=== PATIENT | female | born 1980 | race Caucasian/White ===

== ENCOUNTER → 2017-03-15 | Outpatient (CLI) | payer OTHER ==
[~2017-03-15] MED LIST: ACET325; Z.0.BCPILL
--- NOTE | 2017-03-15 12:52 | RADRPT ---
EXAM DATE/TIME: 03/15/2017 11:09 [place] COMPARISON: No previous studies available for comparison. INDICATIONS : , dating. LAB(S): [id number] MEDICAL HISTORY : . SURGICAL HISTORY : Oral surgery, wisdom teeth. ENCOUNTER: Initial ACUITY: 1 day PAIN SCORE: 0/10 LOCATION: Bilateral pelvis MEASUREMENTS: UTERUS: 9.4 x 5.7 x 5.5 cm ENDOMETRIAL STRIPE: 14 mm RIGHT OVARY: 3.1 x 1.8 x 2.9 cm LEFT OVARY: 4.4 x 1.9 x 3.7 cm FREE FLUID: No CROWN RUMP LENGTH: 0.55 cm = 6 WKS 2 DAYS FHR: 131 BPM FINDINGS: UTERUS: The examination demonstrates a gestational sac within the endometrial cavity. There is a pole e vident with a crown-rump length of 0.55 CM. This corresponds to a gestational age of 6 weeks and 2 da ys. There is a heartbeat present at 130 beats per minute. Imaging through the remainder of the uterus demonstrate 0.8 x 0.7 x 0.8 cm well-circumscribed nodule within the myometrium probably repres enting a small fibroid. RIGHT OVARY: Ovary contains no mass or significant cystic lesion. LEFT OVARY: The examination demonstrates a 1.0 x 0.8 x 0.7 cm anechoic cyst within the left ovary in addition, th ere is a second 2.2 x 1.2 x 2.0 cm well-circumscribed area of increased echogenicity probably represe nting a corpus luteal cyst. MISCELLANEOUS: No free fluid. CONCLUSION: 1. Viable intrauterine estimated age 6 weeks 2 days. Ned Colin MD on March 15, 2017 at 12:48 Board Certified Radiologist. This report was verified electronically.
== END ==
LOC: HRAD 10:10
DX: Z32.01 Encounter for pregnancy test, result positive (principal)
CPT/HCPCS: 76801

== ENCOUNTER → 2017-06-07 | Outpatient (CLI) | payer OTHER | LOC: HPND 10:21 | PROVIDERS: ATTEND Obstetrics & Gynecology | DX: O09.522 Supervision of elderly multigravida, second trimester (principal); O35.8XX0 Maternal care for other (suspected) fetal abnormality and damage, not applicable or unspecified; O99.512 Diseases of the respiratory system complicating pregnancy, second trimester | CPT/HCPCS: 76811; 76817 ==

== ENCOUNTER → 2017-07-05 | Outpatient (CLI) | payer OTHER | LOC: HPND 12:19 | PROVIDERS: ATTEND Obstetrics & Gynecology | DX: O09.522 Supervision of elderly multigravida, second trimester (principal); O35.1XX0 Maternal care for (suspected) chromosomal abnormality in fetus, not applicable or unspecified | CPT/HCPCS: 76816 ==